=== PATIENT | female | born 1965 | race Caucasian/White ===

== ENCOUNTER → 2017-01-01 | Day surgery (SDC) | payer OTHER ==
--- NOTE | 2016-11-29 20:00 | GHP ---
[f rep st] PREOP HISTORY AND PHYSICAL DATE OF ADMISSION: 01/01/2017 DATE OF PLANNED PROCEDURE: 01/01/2017 PREOPERATIVE DIAGNOSIS: Family history of ovarian cancer. HISTORY OF PRESENT ILLNESS: The patient is a 51-year-old 4, para 2-0-2-2, who underwent a l aparoscopic supracervical hysterectomy in 2009 for a symptomatic fibroid uterus. Since that time, h er mother was diagnosed with ovarian or primary peritoneal cancer, and the patient has significant a nxiety over leaving her ovaries, especially as she is perimenopausal if not menopausal. The patient underwent BRCA testing which was negative. The patient is electing to proceed with laparoscopic bi lateral salpingo-oophorectomy to decrease her risk of ovarian or primary peritoneal cancer. The ris ks and benefits have been extensively reviewed with the patient, and the patient has been properly c onsented. MEDICAL HISTORY: Remote history of abnormal Paps, hypothyroidism, anxiety. MEDICATIONS: Synthroid plus [place] Thyroid, Contrave, vitamin D, vitamin B. SURGICAL HISTORY: Facial cyst removal, tonsil and adenoidectomy, endometrial ablation, cystocele an d rectocele repair, laparoscopic supracervical hysterectomy. ALLERGIES: Penicillin. She had a rash as a child. 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 She denies tobac co or drug use. She does have a few alcoholic beverages a year. She does have caffeine 3 times a w [place]. She is and lives with her and 2 children. FAMILY MEDICAL HISTORY: Significant for her mom who was diagnosed with primary peritoneal or ovaria n cancer at age 71. Her maternal grandmother also had a questionable history of ovarian cancer diag nosed at an early age. OBSTETRICAL/GYNECOLOGIC HISTORY: Menarche age 14. The patient had a hysterectomy for symptomatic f ibroids in 2009, so she has not had any periods since then. She does have night sweats and hot flas hes which are bothersome, but not worth doing anything about. The patient does have a remote histor y of an abnormal Pap smear in grad school. She had cryosurgery done. Repeat Paps have been all neg ative. She is 4, para 2-0-2-2. In January 1995, she had a miscarriage at 11 weeks. In 1995, she had a miscarriage at 9 weeks. In 1996, she had a spontaneous vaginal delivery of a 7-p ound 10-ounce male infant. In 07/1999, she had a spontaneous vaginal delivery of a 9-pound 4-ounce male . The patient does have a remote history of abnormal Pap smears, but she had cryosurgery done on her cervix, and repeat Paps have all been negative. She denies any history of any sexually transmitted diseases. REVIEW OF SYSTEMS: A 10-point review of systems is negative with the exception of the above-mention ed pertinent positives. PHYSICAL EXAMINATION: VITAL SIGNS: The patient's vital signs are stable. GENERAL APPEARANCE: No acute distress. PSYCH: Alert and oriented x3, with appropriate affect. HEART: Rate is regular re gular. LUNGS: Clear to auscultation bilaterally. NECK: Supple and mobile. ABDOMEN: Soft, nondi stended, nontender. EXTREMITIES: Revealed no calf tenderness or edema. PELVIC EXAM: There is a c ervix palpated. No adnexal mass is noted. ASSESSMENT AND PLAN: A 51-year-old 4, para 2-0-2-2, who is status post supracervical laparo scopic hysterectomy for a symptomatic fibroid uterus. The plan is to undergo a laparoscopic bilater al salpingo-oophorectomy for a 2-family member history of ovarian or primary peritoneal cancer. The patient is BRCA negative. The risks and benefits have extensively been reviewed with the patient, as well as alternatives, and the patient has been properly consented. /[id number]/MODL
[~2017-01-01] MED LIST: ACETAMINOPHEN 500 MG TAB PO PRN; BUPIVACAINE 0.25% 30 ML SDV ONE; DEXAMETHASONE 4 MG/ML VIAL IVP PRN; DEXAMETHASONE 4 MG/ML VIAL ONE; GABAPENTIN 300 MG CAP PO ONE; GLYCOPYRROLATE 0.2 MG/1 ML VIAL ONE; HYDROCODONE/APAP 5/325 TAB PO PRN; HYDROmorphONE/DILAUDID 1 MG/ML SYR IVP PRN; HYDROmorphONE/DILAUDID 2 MG/ML INJ ONE; IBUPROFEN 200 MG TAB PO PRN; IBUPROFEN 600 MG TAB PO PRN; LIDOCAINE 1% 2 ML INJ ONE; LR 1,000 ML IV ONE; LR 500 ML IV PRN; METOCLOPRAMIDE 10 MG/2 ML VIAL IVP PRN; MIDAZOLAM 2 MG/2 ML VIAL IVP ONE; NALOXONE HCL 0.4 MG/ML INJ IVP PRN; NEOSTIGMINE METHYLSULFATE 5 MG/5 ML SYR ONE; ONDANSETRON 4 MG/2 ML VIAL IVP PRN; ONDANSETRON 4 MG/2 ML VIAL ONE; ONDANSETRON DISINTEGRATING 4 MG TAB PO PRN; PATCH REMOVAL 1 EA PATCH TD SCH; PROMETHAZINE HCL 25 MG/ML INJ IVP PRN; PROPOFOL 200 MG/20 ML VIAL ONE; ROCURONIUM 50 MG/5 ML VIAL ONE; SCOPOLAMINE HYDROBROMIDE 1.5 MG PATCH TD SCH; fentaNYL 100 MCG/2 ML INJ ONE; traMADol 50 MG TAB PO PRN
--- NOTE | 2017-01-01 07:08 | PDANEPAE ---
ANE History of Present Illness 51 year old female with familial history of ovarian cancer who is otherwise healthy. She does have a history of PONV will do triple antiemetic therapy. ANE Past Medical History - Cardiovascular History Hx Hypertension: No Hx Arrhythmias: No Hx Chest Pain: No Hx Coronary Artery / Peripheral Vascular Disease: No Hx CHF / Valvular Disease: No Hx Palpitations: No - Pulmonary History Hx COPD: No Hx Asthma/Reactive Airway Disease: No Hx Recent Upper Respiratory Infection: No Hx Oxygen in Use at Home: No - Neurologic History Hx Cerebrovascular Accident: No Hx Seizures: No Hx Dementia: No - Endocrine History Hx Diabetes: Yes - Renal History Hx Renal Disorders: No - Liver History Hx Hepatic Disorders: No - Neurological & Psychiatric Hx Hx Neurological and Psychiatric Disorders: No - Cancer History Hx Cancer: No - Congenital Disorder History Hx Congenital Disorders: No - GI History Hx Gastrointestinal Disorders: No - Chronic Pain History Chronic Pain: No ANE Review of Systems - Exercise capacity METS (RN): 4 METS ANE Patient History - Allergies Allergies/Adverse Reactions: Penicillins Allergy (Mild, Verified 05/13/10 12:38) Rash ENVIRONMENTAL Allergy (Mild, Uncoded 05/13/10 12:39) NASAL CONGESTION/ITCHY EYES - Home Medications Home Medications: Herbals/Supplements -Info Only 11/06/16 [Last Taken Unknown] Ibuprofen 11/06/16 [Last Taken Unknown] - NPO status NPO Since - Liquids (Date): 12/31/16 NPO Since - Liquids (Time): 21:00 NPO Since - Solids (Date): 12/31/16 NPO Since - Solids (Time): 21:00 - Smoking Hx Smoking Status: Never smoked - Family Anes Hx Family Hx Anesthesia Complications: NEG ANE Labs/Vital Signs - Vital Signs Blood Pressure: 118/72 Heart Rate: 81 Respiratory Rate: 16 O2 Sat (%): 94 Height: 173.99 cm Weight: 96.615 kg ANE Physical Exam - Airway Mallampati Score: Class 1 Mouth exam: normal dental/mouth exam - Pulmonary Pulmonary: no respiratory distress - Cardiovascular Cardiovascular: regular rate and rhythym - ASA Status ASA Status: II ANE Anesthesia Plan Anesthesia Plan: general endotracheal anesthesia Urgent/Emergent Case: Ana Paula gayle completed preop but documented later for safe timely pt care
--- NOTE | 2017-01-01 07:18 | PDHPUP ---
History & Physical Update H&P update statement: This history and physical update is based on an assessment of the patient which was completed after admission or registration (within 24 hours), but prior to the surgery/procedure. H&P update: H&P reviewed & patient examined, no change in patient's condition since H&P completed
--- NOTE | 2017-01-01 08:38 | POSTOPPROG ---
Post Op Note Date of Operation: 01/01/17 Surgeon: Indiana Fox Anesthesiologist: Naveed Anesthesia: GET(General Endotracheal) Pre-op Diagnosis: family history ovarian / primary peritoneal cancer Post-op Diagnosis: same Procedure: laparoscopic bilateral salpingoophrectomy Inf/Abcess present in the surg proc area at time of surgery?: No Depth: Deep Incisional (Fascial) EBL: Minimal Specimen(s): bilateral ovaries and tubes
[2017-01-01] MEDS: fentaNYL 100 MCG/2 ML INJ IVP PRN ×2 (08:54→09:45)
[2017-01-01 09:18] VITALS: TEMP 97.3
--- NOTE | 2017-01-01 09:52 | POSTANESTH ---
Post Anesthetic Evaluation Cardiovascular Status: Normal, Stable Respiratory Status: Normal, Stable Level of Consciousness/Mental Status: Can Participate in Eval Pain Control: Adequate, Prn Tx Ordered Nausea/Vomiting Control: Adequate, Prn Tx Ordered Complications Possibly Related to Anesthesia: None Noted
--- NOTE | 2017-01-01 10:37 | GOP ---
[f rep st] OPERATIVE REPORT DATE OF OPERATION: 01/01/2017 SURGEON: Indiana Fox DO ANESTHESIA: General endotracheal tube. ANESTHESIOLOGIST: Jami Lucio M.D. PREOPERATIVE DIAGNOSIS: Family history of ovarian versus primary peritoneal cancer. The patient is BRCA negative. POSTOPERATIVE DIAGNOSIS: Family history of ovarian versus primary peritoneal cancer. The patient i s BRCA negative. PROCEDURE PERFORMED: Laparoscopic bilateral salpingo-oophorectomy. FINDINGS: 1. Exam under anesthesia: Remnant of cervix. No uterus. No adnexal masses noted. 1. Laparoscopic findings: Status post supracervical hysterectomy. Bilateral normal ovaries, uteru s and tubes. Bilateral peristalsing ureters before and after bilateral salpingo-oophorectomy. ESTIMATED BLOOD LOSS: 10 mL. INDICATIONS: The patient is a 51-year-old 4, para 2-0-2-2, who underwent a laparoscopic sup racervical hysterectomy in 2009 for symptomatic fibroid uterus. Since that time, her mother was maximino gnosed with ovarian or primary peritoneal cancer. The patient has significant anxiety over leaving her ovaries and fallopian tubes in place, especially if she is perimenopausal or menopausal. The pa tient underwent BRCA testing, which was negative. She is electing to proceed with a laparoscopic bi lateral salpingo-oophorectomy to decrease her risk of ovarian or primary peritoneal cancer. The risks and benefits were reviewed extensively with the patient. The patient has been properly co nsented. DESCRIPTION OF PROCEDURE: The patient was taken to the operating room with intravenous fluids in pl [place]. She was then placed on the operating room table in the dorsal supine position where general an esthesia was obtained. She was then repositioned into the dorsal lithotomy position with the [place] in stirrups and prepped and draped in the normal sterile fashion. Exam under anesthesia revealed a mobile cervix. No uterus. No adnexal masses. An Allis clamp was used to grasp the anterior lip of the cervix. Attention was then turned to the umbilicus where a 5 mm skin incision was then made in the umbilicus . A 5 mm trocar was then advanced into the patient's abdomen under direct visualization and the abd omen was then insufflated with CO2 gas until an adequate pneumoperitoneum was achieved. The area un derneath the trocar insertion site was found to be unremarkable. A 10 mm skin incision was then mad e in the patient's left lower quadrant. This was done under direct visualization and the trocar was advanced into the patient's abdomen under direct visualization. A 5 mm skin incision was made in t he patient's right lower quadrant and a 5 mm trocar was advanced into the patient's abdomen under di rect visualization. The laparoscopic findings were consistent with her previous hysterectomy. Bila teral ovaries and tubes were unremarkable. There were no adhesions noted. The upper abdomen was ex plored and was unremarkable. The appendix was unremarkable. The bilateral ureters were noted and n oted to be peristalsing. The left fallopian tube was then grasped and deviated medially, and the left infundibulopelvic ligam ent was then clamped, cauterized and transected with the LigaSure. It was then placed in the fire chief deputy ior cul-de-sac. The right fallopian tube was then grasped and deviated medially, and the right infu ndibulopelvic ligament was then clamped, cauterized, and transected. Hemostasis on both sides was assured. Bilateral ureters were noted to be peristalsing after surgery and remote from the operative sites. The EndoCatch bag was then inserted through the 10 mm trocar and the ovaries were then scooped up and then withdrawn through the 10 mm trocar. The abdomen was again explored and found to be unremarkable. The fascial closure device was then in serted and a 0 Vicryl stitch was used to close the fascia. The CO2 gas was expressed from the patie nt's abdomen. All other instruments were removed from the patient's abdomen. The skin was then richie sed with 4-0 Monocryl in a subcuticular fashion. The Allis clamp was removed from the cervix. No b leeding was noted. The patient was then returned to the dorsal supine position where she was easily awoken from anesthesia. Sponge count was correct. The patient was transported to the [facility] in stable condition. /[id number]/MODL
[2017-01-01 12:19] VITALS: BP 110/60; PULSE 64; RESP 16; O2SAT 96
== END | disposition home or self-care (01) ==
LOC: FSGY 06:09
PROVIDERS: ATTEND Obstetrics & Gynecology
PROC: 0UT74ZZ Resection of Bilateral Fallopian Tubes, Percutaneous Endoscopic Approach (ICD-10-PCS; principal; 2017-01-01 07:15)
PROC: 0UT24ZZ Resection of Bilateral Ovaries, Percutaneous Endoscopic Approach (ICD-10-PCS; principal; 2017-01-01 07:15)
DX: Z15.02 Genetic susceptibility to malignant neoplasm of ovary (principal); Z80.41 Family history of malignant neoplasm of ovary; Z90.710 Acquired absence of both cervix and uterus; N83.8 Other noninflammatory disorders of ovary, fallopian tube and broad ligament; N83.201 Unspecified ovarian cyst, right side; N83.202 Unspecified ovarian cyst, left side
CPT/HCPCS: J1100; J1170; J2250; J2405; J2704; J2710; J3010